=== PATIENT | male | born 1965 | race African-American/Black ===

== ENCOUNTER 2017-02-12 06:23 | Emergency (ER) | payer MEDICARE, OTHER ==
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
[~2017-02-12 06:23] MED LIST: ASPIRIN PO; AUGMENTIN PO; BACTROBAN15 GM TOP; CADUET 10 MG/201 TAB PO; COLACE PO; DYAZIDE 37.5/251 CAP PO; FERROUS SULFATE PO; FLEXERIL PO; FLONASE16 GM; IBUPROFEN PO; LITHIUM PO; LOPRESSOR PO; MUCINEX DM1 TAB.SR . PO; MUCINEX PO; PRILOSEC PO; SEROQUEL PO; VICODIN 5/500 T1 TAB PO; VICODIN PO; ZOLOFT PO
[2017-02-12 09:48] LABS: BASOPHIL% 0.9 % (0-2.5); EOSINOPHIL# 0.2 X10e3 (0-0.7); EOSINOPHIL% 4.3 % (0.0-7.0); HEMATOCRIT 40.4 % (38.0-50.0); HEMOGLOBIN 12.3 gm/dL (13.0-16.0); LYMPHOCYTE# 1.1 X10e3 (1.0-3.5); LYMPHOCYTE% 23.5 % (17.0-45.0); MEAN CELL VOLUME 75.1 FL (83-96); MEAN CORPUSCULAR HEMOGLOBIN 22.8 PG (28-34); MEAN CORPUSCULAR HGB CONC 30.4 g/dL (30-36); MEAN PLATELET VOLUME 8.6 FL (6.5-11.5); MONOCYTE# 0.3 X10e3 (0-1.0); MONOCYTE% 5.9 % (3.0-12.0); NEUTROPHIL# 3.1 X10e3 (1.5-7.1); NEUTROPHIL% 65.4 % (40-75); PLATELET COUNT 193 X10e3 (140-420); RED BLOOD COUNT 5.38 X10e (3.90-5.60); RED CELL DISTRIBUTION WIDTH 14.3 % (11.0-15.5); WHITE BLOOD COUNT 4.8 X10e3 (4.0-10.5)
[2017-02-12 09:49] LABS: DIFF IND NO
[2017-02-12 10:29] LABS: ALBUMIN SERUM 3.9 g/dL (3.5-5.0); BILIRUBIN,TOTAL 0.4 mg/dL (0.2-2.0); BUN/CREATININE RATIO 12.22; CALCIUM SERUM 8.9 mg/dL (8.4-10.2); CREATININE SERUM 0.9 mg/dL (0.6-1.4); GLOM FILT RATE Estimated 112.6 mL/min (>60); POTASSIUM 4.2 mmol/L (3.5-5.1); PROTEIN TOTAL SERUM 6.7 g/dL (6.0-8.3)
== END 2017-02-12 11:59 | disposition home or self-care (01) ==
LOC: CED 06:23
PROVIDERS: Nurse Practitioner
DX: R51 Headache (principal); S01.81XD Laceration without foreign body of other part of head, subsequent encounter; I10 Essential (primary) hypertension; E03.9 Hypothyroidism, unspecified; F31.9 Bipolar disorder, unspecified; F17.210 Nicotine dependence, cigarettes, uncomplicated
CPT/HCPCS: 70450; 80053; 80307; 85025; 99284